=== PATIENT | male | born 1960 | race Caucasian/White ===

== ENCOUNTER 2021-09-13 11:31 | Inpatient (IN) | payer OTHER ==
[~2021-09-13] VITALS: Ht 162.6 cm; Wt 71.4 kg
[~2021-09-13 11:31] MED LIST: CYCL10 PO; HYDR-86 PO; IBUP800 PO; Lotrimin Ultra12 GM TP; NAPR500 PO; Naprosyn500 MG PO; Norco 5-325 Ta1 EACH PO; OXYACE5T PO; PENVK500 PO; TRAM50 PO
--- NOTE | 2021-09-13 12:18 | NUR ---
Pt. coded in X-ray/CT. Attempted to call NOK sister at # on face sheet. NOK# is disconnected. After a brief google search for NOK, attempted a secondary #, received a voicemail recording. Asked for NOK by name, Identified that the pt. is at the hospital and to call this glue plant operator ([phone]) as soon as possible.
[2021-09-13 12:23] LABS: PCO2 Arterial 62.6 mmHg (35-45); PO2 Arterial 148 mmHg (80-100); pH Blood Arterial 7.07 (7.35-7.45)
--- NOTE | 2021-09-13 12:36 | NUR ---
INTUBATED IN ER, S/U ON TRILOGY VENT, CONTINUOUS NEB GIVEN IN LINE AND ETCO2 SET UP PER MD ORDER. AFTER ABG PERFORMED FIO2 DECREASED TO 80% FROM 100 AND RATE INCREASED FROM 16 TO 20
[2021-09-13 12:47] LABS: Source, Urine Clean Catch
[2021-09-13 13:01] LABS: Appearance, Urine Clear (Clear); Bilirubin, Urine Neg (Neg); Blood, Urine 5+ (Neg); Color, Urine Yellow (P-Yellow); Glucose Qualitative, Urine 2+ (Neg); Ketones, Urine Neg (Neg); Leukocyte Esterase, Urine Neg (Neg); Nitrite, Urine Neg (Neg); Protein, Urine 3+ (Neg); Specific Gravity, Urine 1.015 (1.003-1.022); Urobilinogen, Urine NORM (Normal); pH, Urine 6.5 (5.0-8.0)
[2021-09-13 13:04] LABS: BASOPHILS ABSOLUTE AUTO 0.04 K/mm3 (0.00-0.23); BASOPHILS PERCENT AUTO 1 % (0-2); EOSINOPHILS ABSOLUTE AUTO 0.07 K/mm3 (0.00-0.68); EOSINOPHILS PERCENT AUTO 1 % (0-6); Hematocrit 42.9 % (37.0-53.0); Hemoglobin 13.6 g/dL (13.5-17.5); IMMATURE GRAN PERCENT AUTO 3 % (0-1); LYMPHOCYTES ABSOLUTE AUTO 3.44 K/mm3 (0.84-5.20); LYMPHOCYTES PERCENT AUTO 39 % (21-46); MONOCYTES ABSOLUTE AUTO 0.26 K/mm3 (0.16-1.47); MONOCYTES PERCENT AUTO 3 % (4-13); Mean Corpuscular HGB 32.4 pg (26.0-34.0); Mean Corpuscular HGB Conc 31.7 g/dL (31.5-36.5); Mean Corpuscular Volume 102 fL (80-100); NEUTROPHILS ABSOLUTE AUTO 4.77 K/mm3 (1.96-9.15); NEUTROPHILS PERCENT AUTO 54 % (41-73); RDW Coefficient Variation 13.2 % (11.7-14.2); RDW Standard Deviation 49.9 fL (35.1-46.3); White Blood Cell Count 8.88 K/mm3 (4.00-11.30)
[2021-09-13 13:09] LABS: CPK Creatine Kinase 350 U/L (39-308)
[2021-09-13 13:10] LABS: Mean Platelet Volume 8.7 fL (9.1-12.4); Platelet Count 98 K/mm3 (150-400)
[2021-09-13 13:23] LABS: Alanine Aminotransfer (ALT/SGP 118 U/L (12-78); Albumin, Blood 2.4 g/dL (3.4-5.0); Albumin/Globulin Ratio 0.7 (0.8-1.8); Alk Phos 52 U/L (50-136); Anion Gap 16 mmol/L (6-16); Aspartate Aminotrans (AST/SGOT 179 U/L (12-37); Bilirubin, Total 0.3 mg/dL (0.1-1.0); Blood Urea Nitrogen 17 mg/dL (8-24); Bun/Creatinine Ratio 18.3 (12.0-20.0); CO2, Blood 19 mmol/L (21-32); Chloride, Blood 102 mmol/L (98-108); Creatinine, Blood 0.93 mg/dL (0.60-1.20); Globulin, Blood 3.6 g/dL (2.2-4.0); Glomerular Filtration Rate >60 (60-); Glucose, Blood 266 mg/dL (70-99); Sodium, Blood 137 mmol/L (136-145)
[2021-09-13 13:26] LABS: White Blood Cells, Urine 0-2 /hpf (0-5)
[2021-09-13 13:27] LABS: Bacteria Few /hpf; Mucus Light (0-Heavy); Squamous Epithelial Cells Few /hpf (Few)
[2021-09-13 13:31] LABS: Calcium, Blood 13.8 mg/dL (8.5-10.1)
[2021-09-13 13:53] LABS: Creatine Kinase MB Index 3.4 (0.0-4.0)
[2021-09-13 13:55] LABS: Calcium, Ionized (POC) 1.96 mmol/L (1.10-1.46); Chloride (POC) 94 mmol/L (98-108); Creatinine (POC) 0.7 mg/dL (0.8-1.3); Glucose (ISTAT POC) 176 mg/dL (70-99); Hemoglobin (POC) 13.9 g/dL (13.5-17.5); Potassium (POC) 3.3 mmol/L (3.5-5.5); Sodium (POC) 122 mmol/L (135-148); Total CO2 (POC) 19 mmol/L (21-32)
[2021-09-13] MEDS ORDERED: BACLOFEN10 M4 PO (14:18)
[2021-09-13] MEDS ORDERED: MELO7.5 PO (14:19)
--- NOTE | 2021-09-13 15:21 | NUR ---
ATTEMPTING TO CONTACT PT'S NEXT OF KIN (SISTER), NUMBER DISCONNECTED. FOUND OUTGOING PHONE CALLS IN PT'S PHONE. CONTACTED [facility] (NIKI) WHO HAS BEEN WORKING CLOSELY WITH PT. PER NIKI, PT REPORTS THAT HE HAS NO CONTACT WITH FAMILY AND HAS NO FRIENDS. NIKI REPORTS HAVING SAME OUTDATED NUMBER FOR PT'S SISTER. CONSULT FOR PALLIATIVE CARE AND ETHICS PLACED.
--- NOTE | 2021-09-13 15:46 | NUR ---
Pt post cpr in ICU. Called his outpatient providers to find next of kin. Was able to reach his cousin. She is notifying his sisters. pt in cardiac arrest cpr in progress family notified. will update family pt has two sisters and a son he is not in contact with. pt kps score is 10% family advised of grim prognosis.
[2021-09-13 15:55] LABS: Prothrombin Time Results 70.1 Sec (9.7-11.5)
[2021-09-13 15:59] LABS: International Normalized Ratio 7.63
[2021-09-13 16:26] LABS: PCO2 Arterial 45.8 mmHg (35-45); PO2 Arterial 373 mmHg (80-100)
[2021-09-13 16:29] LABS: pH Blood Arterial 7.27 (7.35-7.45)
--- NOTE | 2021-09-13 17:15 | NUR ---
ADMISSION TO ICU/CODE BLUE/SHIFT SUMMARY PT ADMITTED TO ICU POST CARDIAC ARREST WHILE IN OUTPT IMAGING FOR LUNG BIOPSY. PER REVIEW ENGINEER, MULTIPLE VTACH, EPI AND SHOCKS. PT TAKEN TO LEAD MATERIAL HANDLER, ONE STENT PLACED TO MID RCA. PT ARRIVES TO ICU AT 1440. VENT SETTINGS AC/VC 20/450/5/50%. LUNGS COARSE THROUGHOUT. BLOODY SECRETIONS VIA ETT. PT QUICKLY BECAME PALE/DIAPHORETIC/MOTTLED. ETCO2 DECREASED TO 18, HYPOTENSIVE. DR BUTTERFIELD AND DR Javed CALLED. 1L NS, LEVO STARTED. CPR STARTED D/T HYPOTENSION AND PERFUSION. EPI GTT STARTED. PULSES CHECKED, PEA, CODE CONTINUED. LEVO AND EPI GTT MAXED, 1 AMP BICARB GIVEN. ROSC. DR BUTTERFIELD PLACED CENTRAL AND ART LINE TO LEFT GROIN. DRESSING INTACT BUT SITE OOZING. TR BAND TO RIGHT RADIAL, 2 ML REMOVED s DIFFICULTY, OOZING WHEN ADDITIONAL AIR REMOVED, REPLACED 2 ML, WILL MONITOR CLOSELY. SEDATION PLACED ON STANDBY DURING CODE, p ART LINE PLACED, PT MOVED HEAD TO VOICE, OPENS EYES SPONT, DOES NOT FOLLOW COMMANDS. MOVES ALL EXT. COUGH/GAG/SWALLOW REFLEX. RESTARTED PROPOFOL GTT FOR SEDATION, MEDICATED c FENTANYL FOR PAIN. OGT TO LIS, RED EMESIS OUT. PT REMAINS PALE BUT MOTTLING IMPROVED. NOT DIAPHORETIC AT THIS TIME. HYPOTHERMIC, NO NEED TO COOL PER DR BUTTERFIELD, PASSIVE WARMING IN PLACE. LEE PATENT, DRAINING CLEAR YELLOW URINE TO GRAVITY. PALLIATIVE CARE ATTEMPTING TO CONTACT FAMILY. WILL CONTINUE TO MONITOR UNTIL REPORT TO ONCOMING NURSE.
[2021-09-13 17:18] LABS: BASOPHILS ABSOLUTE AUTO 0.04 K/mm3 (0.00-0.23); BASOPHILS PERCENT AUTO 0 % (0-2); EOSINOPHILS ABSOLUTE AUTO 0.03 K/mm3 (0.00-0.68); EOSINOPHILS PERCENT AUTO 0 % (0-6); Hematocrit 37.5 % (37.0-53.0); Hemoglobin 11.9 g/dL (13.5-17.5); IMMATURE GRAN ABSOLUTE AUTO 0.35 K/mm3 (0.00-0.10); IMMATURE GRAN PERCENT AUTO 2 % (0-1); LYMPHOCYTES ABSOLUTE AUTO 1.35 K/mm3 (0.84-5.20); LYMPHOCYTES PERCENT AUTO 7 % (21-46); MONOCYTES PERCENT AUTO 9 % (4-13); Mean Corpuscular HGB 32.4 pg (26.0-34.0); Mean Corpuscular HGB Conc 31.7 g/dL (31.5-36.5); Mean Corpuscular Volume 102 fL (80-100); NEUTROPHILS PERCENT AUTO 82 % (41-73); Platelet Count 364 K/mm3 (150-400); RDW Coefficient Variation 13.2 % (11.7-14.2); Red Blood Cell Count 3.67 M/mm3 (4.30-5.90); White Blood Cell Count 18.47 K/mm3 (4.00-11.30)
[2021-09-13 18:05] LABS: Albumin, Blood 2.2 g/dL (3.4-5.0); Anion Gap 14 mmol/L (6-16); Blood Urea Nitrogen 21 mg/dL (8-24); Bun/Creatinine Ratio 15.1 (12.0-20.0); CO2, Blood 25 mmol/L (21-32); Calcium, Blood 10.1 mg/dL (8.5-10.1); Chloride, Blood 99 mmol/L (98-108); Creatinine, Blood 1.39 mg/dL (0.60-1.20); Glomerular Filtration Rate 52 (60-); Glucose, Blood 204 mg/dL (70-99); Phosphorus, Blood 9.2 mg/dL (2.5-4.9); Potassium, Blood 4.4 mmol/L (3.5-5.5); Sodium, Blood 138 mmol/L (136-145)
--- NOTE | 2021-09-13 18:09 | NUR ---
Family arrived review of pt with sister. Son will be in later. Sister Yuli is willing to make decisions of son kiana. She hopes he can and she can support him. 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 She wants to know his prognosis with the cancer. Her thought is if he will be in great declline or dying of cancer he would not want this treatment. Family states he has been isolating and probably drinking more alcohol. got contact numbers for family and updated political reporter. plan watch and wait if he continues to wake up he may be able to participate in decisions.
--- NOTE | 2021-09-13 18:39 | NUR ---
Spiritual Care Pt. is intubated and non responsive. Three family members present including NOK. Family welcomed my visit. Facilitated life review. Family is reaching out to pts. son who is coming in from [facility]. Prayed for Pt. and the family. Family displayed evidence of catharsis, and verbalized gratitude for the spiritual care visit.
[2021-09-13 18:53] LABS: Influenza A, PCR NEGATIVE (NEGATIVE); Influenza B, PCR NEGATIVE (NEGATIVE); Resp Syncytial Virus, PCR NEGATIVE (NEGATIVE); SARS-Cov-2 (COVID-19) PCR, MMC NEGATIVE (NEGATIVE)
--- NOTE | 2021-09-13 20:00 | NUR ---
ASSUMED CARE: Pt CURRENTLY SEDATED ON VENT, SETTINGS 20/450/5/100%. MULTIPLE FAMILY IS AT THE BEDSIDE. SON WHO WILL BE MAKING MEDICAL DECISIONS WILL BE HERE SHORTLY. SATS 100%. LS COARSE T/O. SUCTION COMPLETED, SCANT AMOUNT OF BLOODY DRAINAGE NOTED. RESPONDS TO PAIN, OPENS EYES SPONTANOUSLY. ZOLL PATCHES STILL IN PLACE FROM EARLIER CPR. SOME BRUISING NOTED. VS HOLDING, SINUS TACH ON MONITOR. ARTLINE HOOKED UP TO LEFT FEMORAL. CURRENT GTTS: LEVO-10; EPI-2; PROPOFOL-25; NS AT 125ML/HR. ALL OTHER LINES FLUSHED. LEE IN PLACE AND DRAINING. DRESSING TO CENTRAL LINE INTACT, SCANT AMOUNT OF DRAINAGE UNDER DRESSING. DISCUSSED CARE WITH FAMILY. SEE ASSESSMENT FOR FURTHER DETAILS.
--- NOTE | 2021-09-13 21:05 | NUR ---
UPDATED DR. BUTTERFIELD REGARDING FAMILY'S DECISION FOR DNR, THEY DO NOT WANT ANY MORE CPR TO BE PERFORMED IF HIS HEART STOPS. NEW ORDERS OBTAINED FOR CHANGE IN CODE STATUS, LABS, AND MEDS.
[2021-09-14 06:00] LABS: PCO2 Arterial 31.4 mmHg (35-45); PO2 Arterial 125 mmHg (80-100); pH Blood Arterial 7.42 (7.35-7.45)
--- NOTE | 2021-09-14 06:06 | NUR ---
SHIFT SUMMARY: Pt SEDATED ON VENT. SETTINGS: 16/450/5/30%. TOLERATING WELL. ETCO2 HAS REMAINED BETWEEN 21-22. SATS 100%. SCANT AMOUNT OF BLOODY SECREATIONS W/SUCTIONING. LS COARSE T/O. NO GAG, SWALLOW, OR COUGH NOTED. DOES OPEN EYES SPONTANOUSLY, WILL CONVENTION WORKER ON REQUEST ON THE RIGHT HAND ONLY. PUPILS VERY SLUGGISH, NO MOVEMENT. SINUS TACH ON MONITOR RATE 105-107. ART LINE PRESSURES HOLDING WNL, LEVOPHED ON HOLD. BT HYPOACTIVE, SM BM NOTED. LEE PATENT ENRIQUE 700 OUTPUT. FEBRILE 100.4. GRIMACING WITH MOVEMENT-FENTANYL GIVEN 3 TIMES. ART/CENTRAL LINE PATENT. GTTS: PROPOFOL-25; EPI-1; NS @ 125. DR. BUTTERFIELD CALLED FOR UPDATE ON FAMILY REQUEST FOR DNR, NEW ORDERS RECEIVED, PLEASE SEE CHART. OG TO LIS HAD 200CC OF BLOODY DRAINAGE. FAMILY HAS BEEN AT BEDSIDE ALL NIGHT. LABS PENDING. WILL CONTINUE TO MONITOR TILL REPORT IS GIVEN.
[2021-09-14 06:50] LABS: Alanine Aminotransfer (ALT/SGP 852 U/L (12-78); Albumin, Blood 2.4 g/dL (3.4-5.0); Albumin/Globulin Ratio 0.8 (0.8-1.8); Alk Phos 40 U/L (50-136); Anion Gap 10 mmol/L (6-16); Aspartate Aminotrans (AST/SGOT 3555 U/L (12-37); Bilirubin, Total 0.7 mg/dL (0.1-1.0); Blood Urea Nitrogen 26 mg/dL (8-24); Bun/Creatinine Ratio 23.4 (12.0-20.0); CO2, Blood 20 mmol/L (21-32); Calcium, Blood 8.1 mg/dL (8.5-10.1); Chloride, Blood 106 mmol/L (98-108); Creatinine, Blood 1.11 mg/dL (0.60-1.20); Glomerular Filtration Rate >60 (60-); Glucose, Blood 185 mg/dL (70-99); Potassium, Blood 4.4 mmol/L (3.5-5.5); Sodium, Blood 136 mmol/L (136-145); Total Protein, Blood 5.4 g/dL (6.4-8.2)
[2021-09-14 07:00] LABS: BASOPHILS ABSOLUTE AUTO 0.02 K/mm3 (0.00-0.23); BASOPHILS PERCENT AUTO 0 % (0-2); EOSINOPHILS PERCENT AUTO 0 % (0-6); Hematocrit 31.5 % (37.0-53.0); Hemoglobin 10.7 g/dL (13.5-17.5); IMMATURE GRAN ABSOLUTE AUTO 0.07 K/mm3 (0.00-0.10); IMMATURE GRAN PERCENT AUTO 1 % (0-1); International Normalized Ratio 1.48; LYMPHOCYTES ABSOLUTE AUTO 1.06 K/mm3 (0.84-5.20); LYMPHOCYTES PERCENT AUTO 8 % (21-46); MONOCYTES ABSOLUTE AUTO 0.82 K/mm3 (0.16-1.47); MONOCYTES PERCENT AUTO 6 % (4-13); Mean Corpuscular HGB 32.7 pg (26.0-34.0); Mean Corpuscular Volume 96 fL (80-100); Mean Platelet Volume 8.3 fL (9.1-12.4); NEUTROPHILS ABSOLUTE AUTO 11.03 K/mm3 (1.96-9.15); NEUTROPHILS PERCENT AUTO 85 % (41-73); Platelet Count 271 K/mm3 (150-400); Prothrombin Time Results 15.1 Sec (9.7-11.5); RDW Coefficient Variation 13.1 % (11.7-14.2); RDW Standard Deviation 45.3 fL (35.1-46.3); Red Blood Cell Count 3.27 M/mm3 (4.30-5.90)
--- NOTE | 2021-09-14 08:00 | NUR ---
ASSUMED CARE REPORT FROM MARTA/OCTAVIO RAJPUT. PT INTUBATED AND SEDATED. VENT SETTINGS AC/VC 20/450/5/30%. LUNGS CLEAR THROUGHOUT. SMALL RED SECRETIONS THROUGH ETT. PROPOFOL AND FENTANYL PRN FOR SEDATION AND PAIN. COUGH/GAG/SWALLOW REFLEX PRESENT. GRIMACES c CARE. SQUEEZES HAND ON RIGHT SIDE. DOES NOT FOLLOW ANY OTHER COMMANDS. PUPILS 2 MM, SLUGGISH. ST ON MONITOR, RATE 100'S. BP STABLE. EPI GTT PLACED ON STANDBY. ART LINE AND CENTRAL TO LEFT GROIN, DRESSING C/D/I. ART LINE ZERO'D. LEE PATENT, DRAINING CLEAR YELLOW URINE TO GRAVITY. OGT TO LIS. WILL CONTINUE TO MONITOR.
--- NOTE | 2021-09-14 16:45 | NUR ---
ASSUMED CARE REPORT FROM RAUL RAJPUT. PT. SEDATED AND INTUBATED AT THIS TIME. FACIAL GRIMACE AND PULLING AGAINST RESTRAINTS WITH REPOSITIONING. PT. RR INCREASES WITH REPOSITIONING WELL. PROPOFOL TITRATED UP TO 40MCG/KG/MIN AT THIS TIME AND MED WITH FENTANYL FOR PAIN. LS COARSE. MINIMAL RESIDUALS NOTED, TUBE FEED INFUSING AT 25ML/HR. TYLENOL GIVEN PT FOR TEMP 100.3. FAN AND ICE PACKS REMAIN IN PLACE. PT. HAS TEMP LEE DRAINING TO GRAVITY. VSS AT THIS TIME, PT REMAINS OFF PRESSORS AT THIS TIME. ART LINE IN PLACE.
--- NOTE | 2021-09-14 20:50 | NUR ---
ASSUMED CARE: UNRESPONSIVE EXCEPT TO PAINFUL STIMULI. SEDATED WITH PROPOFOL AT 40. INTUBATED/VENT SETTINGS 20/450/5/30%. SATS 94%. SUCTIONED WITH BLOOD TINGE SECREATIONS, AND CREAMY THICK HYDE ORALLY. IRREGULAR BREATHING PATTERN POSSIBLY R/T FX STERNUM/RIBS. GRIMACING ON TOUCH OR SLIGHT MOVEMENT. MEDICATED WITH FENTANYL. LS WITH A RUB VS COARSE. SINUS TACH ON MONITOR IN THE 110'S. CATH WITH DARK YELLOW URINE, PATENT. SMALL BM NOTED, COMPLETE BEDBATH COMPLETED. COOL OUTER TEMP BUT CORE READING 99.4. NS INFUSING AT 125ML/HR. WILL CONTINUE TO MONITOR AND ASSESS.
[2021-09-15 04:17] LABS: BASOPHILS ABSOLUTE AUTO 0.02 K/mm3 (0.00-0.23); BASOPHILS PERCENT AUTO 0 % (0-2); Hematocrit 25.2 % (37.0-53.0); Hemoglobin 8.6 g/dL (13.5-17.5); LYMPHOCYTES ABSOLUTE AUTO 1.04 K/mm3 (0.84-5.20); LYMPHOCYTES PERCENT AUTO 10 % (21-46); MONOCYTES ABSOLUTE AUTO 1.05 K/mm3 (0.16-1.47); MONOCYTES PERCENT AUTO 10 % (4-13); Mean Corpuscular HGB 32.7 pg (26.0-34.0); Mean Corpuscular HGB Conc 34.1 g/dL (31.5-36.5); Mean Corpuscular Volume 96 fL (80-100); Mean Platelet Volume 9.1 fL (9.1-12.4); Platelet Count 221 K/mm3 (150-400); RDW Coefficient Variation 13.2 % (11.7-14.2); Red Blood Cell Count 2.63 M/mm3 (4.30-5.90); White Blood Cell Count 10.99 K/mm3 (4.00-11.30)
[2021-09-15 04:26] LABS: EOSINOPHILS ABSOLUTE AUTO 0.04 K/mm3 (0.00-0.68); EOSINOPHILS PERCENT AUTO 0 % (0-6); IMMATURE GRAN ABSOLUTE AUTO 0.06 K/mm3 (0.00-0.10); IMMATURE GRAN PERCENT AUTO 1 % (0-1); NEUTROPHILS ABSOLUTE AUTO 8.78 K/mm3 (1.96-9.15); NEUTROPHILS PERCENT AUTO 80 % (41-73)
[2021-09-15 04:33] LABS: Alanine Aminotransfer (ALT/SGP 598 U/L (12-78); Albumin/Globulin Ratio 0.6 (0.8-1.8); Alk Phos 36 U/L (50-136); Anion Gap 7 mmol/L (6-16); Aspartate Aminotrans (AST/SGOT 695 U/L (12-37); Bilirubin, Direct 0.2 mg/dL (0.0-0.3); Bilirubin, Indirect 0.5 mg/dL (0.1-0.7); Bilirubin, Total 0.7 mg/dL (0.1-1.0); Blood Urea Nitrogen 28 mg/dL (8-24); CO2, Blood 23 mmol/L (21-32); Calcium, Blood 7.4 mg/dL (8.5-10.1); Chloride, Blood 109 mmol/L (98-108); Creatinine, Blood 0.97 mg/dL (0.60-1.20); Globulin, Blood 3.1 g/dL (2.2-4.0); Glomerular Filtration Rate >60 (60-); Glucose, Blood 121 mg/dL (70-99); Phosphorus, Blood 2.5 mg/dL (2.5-4.9); Potassium, Blood 3.9 mmol/L (3.5-5.5); Sodium, Blood 139 mmol/L (136-145); Total Protein, Blood 5.1 g/dL (6.4-8.2)
--- NOTE | 2021-09-15 06:04 | NUR ---
SHIFT SUMMARY: NO ACUTE CHANGES THIS SHIFT. Pt CONTINUES ON SEDATION VIA PROPOFOL RATE 40MCQ/HR. RESPONDS TO PAIN ONLY. VENT SETTINGS REMAINS 20/450/5/30%. SECREATIONS ARE MODERATE HYDE CREAMY COLOR. ETCO2 20-21. LS STARTED WITH A RUB BUT BECAME CLEAR WITH INCREASE IN SUCTIONING. SINUS TACH WITH SOME PREMATURE BEATS RATE 110'S. SATS AVERATE 95-97%. INCREASE IN FENTANYL USE FOR PAIN CONTROL AND EASE OF BREATHING. LEE OUTPUT 450 DARK. SWELLING IN BILATERAL UPPER ARMS. SMALL BM. WILL CONTINUE TO MONITOR TILL REPORT IS GIVEN.
--- NOTE | 2021-09-15 18:12 | NUR ---
SUMMARY PT INTUBATED AND SEDATED WITH PROPOFOL. PT WILL RAISE EYEBROWS WHEN SPOKEN TO. WILL LIFT R ARM TOWARDS ETT AT TIMES. NOT FOLLOWING COMMANDS. WILL TRY TO MOUTH WORDS AT TIMES. PT GETS TACHYPNEIC AND BROW FURROWS, FENTANYL USED FOR PAIN. PT HAS FLAIL CHEST FROM CPR AND SOME LIGHT BLUE/GREEN BRUISING WITH FRACTURED RIBS. TOLERATING TF WITH MINIMAL RESIDUAL. HAVING LOOSE STOOL. DID NOT ATTEMPT SBT TODAY DUE TO INCREASED RESP RATE, INCREASED SPUTUM PRODUCTION, AND PT'S OVERALL DISCOMFORT WITH FRACTURED RIBS.
--- NOTE | 2021-09-15 20:21 | NUR ---
ASSUMED CARE. LIGHTLY SEDATED, ATTEMPTS TO OPEN EYES TO NAME. CUSTOMER RELATIONS ASSISTANT IS STRONG ON THE RIGHT, DOES NOT CUSTOMER RELATIONS ASSISTANT ON THE LEFT, DOES MOVE LEFT ARM WHEN OUT OF RESTRAINT. FLEXION WITHDRAWL FEET. GOOD GAG, SWALLOW, AND COUGH WHEN SUCTIONING. PUPILS MORE REACTIVE THEN PREVIOUS NIGHT. VENT SETTINGS 20/450/5/30% SATS 96-99%. LS VERY COURSE, CLEAR TO HYDE SECREATIONS, INCREASE SILIVA PRODUCTION. SINUS TACH/ARRYTHMIA ON MONITOR RATE OF 102. ABP 120'S. PROPOFOL GTT AT 50MCQ/HR. NS AND ANTIBOTIC INFUSING. ALL LINES ARE PATENT AND WORKING, CATH PATENT. WILL CONTINUE TO MONITOR, TX, AND PROVIDE CARE.
--- NOTE | 2021-09-16 00:58 | NUR ---
TRANSFER OF CARE TO CHARLY RAJPUT. REPORT GIVEN. Pt RESTING COMFORTABLY. NO CHANGES TO VENT SETTINGS, PROPOFOL CONTINUES AT 50MCQ. TF AT GOAL OF 35ML/HR. SEE ASSESSMENTS FOR FURTHER DETAILS.
--- NOTE | 2021-09-16 01:09 | NUR ---
ASSUMED CARE OF PATIENT, PT TRIES TO OPEN HIS EYES AT THE SOUND OF HIS NAME. SHARIF, ETT 7.5 23CM @ GUMS, AC 20/450/5/30%, SATS 97%, ABP 110'S/50'S, MAP>65, RESP RATE 24, CHEST VISIBLY UNEQUAL WITH BRUISING NOTED. PT GRIMACES WITH LEFT ARM MOVEMENT, TF PIVOT 1.5 @ 35ML/HR W/ BT+, LEE TO GRAVITY DRAINAGE WITH CLEAR YELLOW RETURN IN TUBING AND BAG. CENTRAL LINE IN LEFT GROIN C/D/I. ART LINE ZEROED. HANDS EDEMATOUS, FEET/ANKLES W/ GOOD COLOR/WARMTH.
[2021-09-16 04:08] LABS: Hemoglobin 7.4 g/dL (13.5-17.5); Mean Corpuscular HGB Conc 33.6 g/dL (31.5-36.5); Mean Corpuscular Volume 98 fL (80-100); Mean Platelet Volume 9.3 fL (9.1-12.4); NRBC ABSOLUTE 0.05 K/mm3 (0.00-0.02); NRBC Auto 0.5 /100 WBC (0.0-0.2); Platelet Count 174 K/mm3 (150-400); RDW Coefficient Variation 13.6 % (11.7-14.2); RDW Standard Deviation 48.7 fL (35.1-46.3); Red Blood Cell Count 2.24 M/mm3 (4.30-5.90); White Blood Cell Count 9.98 K/mm3 (4.00-11.30)
[2021-09-16 04:24] LABS: Albumin, Blood 1.8 g/dL (3.4-5.0); Anion Gap 5 mmol/L (6-16); Blood Urea Nitrogen 22 mg/dL (8-24); Bun/Creatinine Ratio 25.6 (12.0-20.0); CO2, Blood 24 mmol/L (21-32); Calcium, Blood 7.4 mg/dL (8.5-10.1); Chloride, Blood 111 mmol/L (98-108); Creatinine, Blood 0.86 mg/dL (0.60-1.20); Glomerular Filtration Rate >60 (60-); Glucose, Blood 135 mg/dL (70-99); Magnesium, Blood 2.2 mg/dL (1.6-2.4); Phosphorus, Blood 2.3 mg/dL (2.5-4.9); Potassium, Blood 3.6 mmol/L (3.5-5.5); Sodium, Blood 140 mmol/L (136-145)
--- NOTE | 2021-09-16 05:50 | NUR ---
PT CONTINUES ON VENTILATOR, AC 20/450/5/30%, TUBE FEEDING @ 35ML/HR, PROPOFOL @ 50MCG/KG, NS @ 75ML/HR. LEE TO GRAVITY DRAINAGE. LUNGS CONT. W/ COARSENESS THROUGHOUT, BOWEL TONES +, ALERT TO VOICE/TOUCH. UNABLE TO WIGGLE TOES ON COMMAND. NO OTHER CHANGES NOTED SINCE MIDNIGHT. WILL CONTINUE TO MONITOR AND TREAT NECESSARY.
--- NOTE | 2021-09-16 06:10 | NUR ---
WHEN PATIENT WAS BEING TURNED AND REPOSITIONED, HE WAS ABLE TO MOVE THE TOES ON THE RIGHT FOOT TO COMMAND, HE ALSO MOVED BOTH ARMS ON HIS OWN.
[2021-09-16 06:23] LABS: BAND PERCENT MAN 8 % (0-8); BASOPHILS PERCENT MAN 0 % (0-2); EOSINOPHILS ABSOLUTE MAN 0.39 K/mm3 (0.00-0.68); EOSINOPHILS PERCENT MAN 4 % (0-6); LYMPHOCYTES ABSOLUTE MAN 0.99 K/mm3 (0.84-5.20); LYMPHOCYTES PERCENT MAN 10 % (21-46); MONOCYTES ABSOLUTE MAN 0.59 K/mm3 (0.16-1.47); MONOCYTES PERCENT MAN 6 % (4-13); NEUTROPHILS ABSOLUTE MAN 7.98 K/mm3 (1.96-9.15); SEG NEUTROPHILS PERCENT MAN 72 % (41-73); TOTAL CELLS COUNTED 100
--- NOTE | 2021-09-16 07:25 | NUR ---
ASSUMPTION OF CARE RECEIVED REPORT FROM CHARLY RAJPUT AT 0700, ASSUMED CARE OF PATIENT. PATIENT INTUBATED WITH VENT SETTINGS 20/450/5/30% WITH 02 SATS ABOVE 95%. PATIENT SPONTANEOUSLY OPENS EYES, FOLLOWS COMMANDS. GRIMACES TO PAIN. PROPOFOL INFUSING AT 50MCG/KG. TF AT GOAL OF 35ML/HR INFUSING VIA OG. CENTRAL LINE AND ART LINE TO LEFT GROIN C/D/I. LEE PATENT AND DRAINING. WILL REVIEW ORDERS AND TREAT PRESCRIBED.
[2021-09-16 09:52] LABS: Hemoglobin 7.2 g/dL (13.5-17.5)
--- NOTE | 2021-09-16 15:05 | NUR ---
Spiritual Care visit. Pt. is resting and unresponsive. Spoke words of pastoral counel and prayer over pt. Will monitor when family visits.
--- NOTE | 2021-09-16 15:39 | NUR ---
Review of family and pt with intesivist. Goal is extubation. pt kps score is 30%. Family presents that he historically did not persue care. He is now post cardiac arrest two separte events of cpr. Suggest hospice care.
[2021-09-16 16:33] LABS: Hematocrit 23.5 % (37.0-53.0); Hemoglobin 7.3 g/dL (13.5-17.5)
--- NOTE | 2021-09-16 18:29 | NUR ---
SHIFT SUMMARY PATIENT VENTED, WAKING UP AND FOLLOWING COMMANDS AT START OF SHIFT. VENT CHANGED FROM AC TO SPONTANEOUS AROUND [address] FOUNTAIN, PLACED BACK ON AC 20/450/5/30%, SATS ABOVE 95%. PATIENT ON PROPOFOL AND ADDED PRECEDEX TO DECREASE PROPOFOL DOSE. VITALS STABLE NOT REQUIRING ART LINE. PERIPHERAL LINES PLACED AND SUCCESSFULY D/C'D BOTH CENTRAL LINE AND ART-LINE FROM LEFT GROIN. MEDICATED FOR PAIN WITH FENTANYL CHARTED WITH GOOD RESPONSE. PROPOFOL TITRATED FOR B/P AND SEDATION. FEBRILE WITH TEMP HIGH OF 100.5, FAN PLACED TO BEDSIDE. FAMILY UPDATED. WILL MONITOR AND REPORT TO ONCOMING RN.
--- NOTE | 2021-09-16 19:29 | NUR ---
Assumed care. Report received from karen RAJPUT. Pt in bed, sedated and ventilated via ETT. Vent settings: AC/VC 220/450/5/30%. OG tube in place, TF at goal rate 35 ml/hr. PT has IV access in R/forearm and L/forearm. IV pump settings: Propofol 20 mcg/kg/min, precedex 1.2 mcg/kg/hr, NS 75 ml/hr. SWB restraints in place. Medina catheter in place. VS stable, no acute needs noted at this time. Will continue to monitor.
[2021-09-17 04:07] LABS: Hematocrit 22.7 % (37.0-53.0); Hemoglobin 7.3 g/dL (13.5-17.5); Mean Corpuscular HGB 32.4 pg (26.0-34.0); Mean Corpuscular HGB Conc 32.2 g/dL (31.5-36.5); Mean Corpuscular Volume 101 fL (80-100); Mean Platelet Volume 9.8 fL (9.1-12.4); NRBC ABSOLUTE 0.35 K/mm3 (0.00-0.02); NRBC Auto 2.9 /100 WBC (0.0-0.2); Platelet Count 157 K/mm3 (150-400); RDW Coefficient Variation 14.2 % (11.7-14.2); RDW Standard Deviation 51.8 fL (35.1-46.3); Red Blood Cell Count 2.25 M/mm3 (4.30-5.90); White Blood Cell Count 11.98 K/mm3 (4.00-11.30)
[2021-09-17 04:25] LABS: Albumin, Blood 1.7 g/dL (3.4-5.0); Anion Gap 4 mmol/L (6-16); Blood Urea Nitrogen 27 mg/dL (8-24); Bun/Creatinine Ratio 27.6 (12.0-20.0); CO2, Blood 23 mmol/L (21-32); Calcium, Blood 7.4 mg/dL (8.5-10.1); Chloride, Blood 115 mmol/L (98-108); Creatinine, Blood 0.98 mg/dL (0.60-1.20); Glomerular Filtration Rate >60 (60-); Glucose, Blood 141 mg/dL (70-99); Magnesium, Blood 2.7 mg/dL (1.6-2.4); Potassium, Blood 3.9 mmol/L (3.5-5.5); Sodium, Blood 142 mmol/L (136-145)
[2021-09-17 04:26] LABS: BAND PERCENT MAN 20 % (0-8); BASOPHILS PERCENT MAN 0 % (0-2); EOSINOPHILS ABSOLUTE MAN 0.11 K/mm3 (0.00-0.68); EOSINOPHILS PERCENT MAN 1 % (0-6); LYMPHOCYTES ABSOLUTE MAN 1.19 K/mm3 (0.84-5.20); LYMPHOCYTES PERCENT MAN 10 % (21-46); MONOCYTES ABSOLUTE MAN 1.19 K/mm3 (0.16-1.47); MONOCYTES PERCENT MAN 10 % (4-13); MYELOCYTE ABSOLUTE MAN 0.11 K/mm3 (0.00-0.00); MYELOCYTE PERCENT MAN 1 % (0-0); NEUTROPHILS ABSOLUTE MAN 9.34 K/mm3 (1.96-9.15); SEG NEUTROPHILS PERCENT MAN 58 % (41-73); TOTAL CELLS COUNTED 100
--- NOTE | 2021-09-17 06:50 | NUR ---
Shift summary. Pt rested in bed throughout shift, vent settings remained unchanged. ETT, OG tube in place, TF at goal rate. Propofol titrated off during shift. Precedex running at 1.0 mcg/kg/hr. Pt medicated with PRN fentanyl and dilaudid for pain. SWB restraints in place. Medina in place, 450 out this shift. Pt alert and responding to verbal stimuli, following commands. See shift assessment for further details. Will continue to monitor and report off to dayshift RN.
--- NOTE | 2021-09-17 07:10 | NUR ---
ASSUMPTION OF CARE RECEIVED REPORT FROM JUSTINA RAJPUT, ASSUMED CARE OF PATIENT. PATIENT INTUBATED VENT SETTINGS 20/450/5/30% WITH 02 SATS ABOVE 95%. PATIENT AWAKE, FOLLOWING COMMANDS. PRECEDEX AT 1.2MCG/KG FOR COMFORT. LEE PATENT AND DRAINING. WILL REVIEW ORDERS AND TREAT PRESCRIBED.
--- NOTE | 2021-09-17 11:29 | NUR ---
PATIENT BECOMING AGITATED AND ANXIOUS. SPOKE TO DR. FOUNTAIN, AWAITING FAMILY TO ARRIVE BEFORE EXTUBATION. MEDICATED FOR PAIN AND RESTARTED PROPOFOL. PATIENT CURRENTLY SEDATED. ONCE FAMILY ARRIVES, WILL AWAKE PATIENT AND REASSESS FOR EXTUBATION.
--- NOTE | 2021-09-17 13:06 | NUR ---
EXTUBATION FAMILY ARRIVED TO UNIT AT 1200. TITRATED PROPOFOL OFF, PATIENT AWOKE AROUND 1230. CALM AND COOPERATIVE, REMAINED ON SPONTANEOUS VIA VENTILATOR. DR. FOUNTAIN TO ROOM AND DISCUSSED PLAN WITH FAMILY. PATIENT EXTUBATED AT 1259 BY RT. A/O AT THIS TIME. PRECEDEX CONTINUES AT 1MCG/KG. WILL TITRATE. FAMILY TO BEDSIDE.
--- NOTE | 2021-09-17 18:13 | NUR ---
SHIFT SUMMARY PATIENT A/O FROM START OF SHIFT. SPONTANEOUS VENT SETTINGS INITIATED. FAMILY ARRIVED AND PATIENT EXTUBATED PREVIOUSLY CHARTED. PATIENT REMAINED A/O AFTER EXTUBATION. PLACED ON 2L 02 VIA NC AND INCREASED TO 5L WHILE ASLEEP. PROPOFOL TURNED OFF AND PRECEDEX TITRATED OFF. MEDICATED WITH FENTANYL AND DILAUDID FOR PAIN. STRONG BUT PAINFUL PRODUCTIVE COUGH. PICC LINE PLACED IN RUE. LEE REMAINED PATENT AND DRAINING CLEAR, ENRIQUE URINE. INCONTINENT OF BOWEL MOVEMENTS CHARTED. WILL CONTINUE TO MONITOR AND REPORT TO ONCOMING RN.
--- NOTE | 2021-09-17 19:59 | NUR ---
ASSUMED CARE. REPORT RECEIVED FROM CATE RAJPUT. PT RESTING IN BED, ON 02 VIA NC AT 4 L/MIN. PICC IN IDA, WNL. NS AT 75 ML/HR RUNNING. LEE CATHETER IN PLACE. VS STABLE. PT ALERT AND ORIENTED, CALL LIGHT WITHIN REACH. WILL CONTINUE TO MONITOR.
[2021-09-18 03:47] LABS: BASOPHILS ABSOLUTE AUTO 0.05 K/mm3 (0.00-0.23); BASOPHILS PERCENT AUTO 0 % (0-2); EOSINOPHILS ABSOLUTE AUTO 0.22 K/mm3 (0.00-0.68); EOSINOPHILS PERCENT AUTO 1 % (0-6); Hematocrit 22.7 % (37.0-53.0); Hemoglobin 7.3 g/dL (13.5-17.5); IMMATURE GRAN ABSOLUTE AUTO 0.64 K/mm3 (0.00-0.10); IMMATURE GRAN PERCENT AUTO 4 % (0-1); LYMPHOCYTES ABSOLUTE AUTO 1.17 K/mm3 (0.84-5.20); LYMPHOCYTES PERCENT AUTO 7 % (21-46); MONOCYTES ABSOLUTE AUTO 1.81 K/mm3 (0.16-1.47); MONOCYTES PERCENT AUTO 11 % (4-13); Mean Corpuscular HGB 32.4 pg (26.0-34.0); Mean Corpuscular HGB Conc 32.2 g/dL (31.5-36.5); Mean Corpuscular Volume 101 fL (80-100); Mean Platelet Volume 9.6 fL (9.1-12.4); NEUTROPHILS ABSOLUTE AUTO 12.52 K/mm3 (1.96-9.15); NEUTROPHILS PERCENT AUTO 76 % (41-73); NRBC ABSOLUTE 0.23 K/mm3 (0.00-0.02); NRBC Auto 1.4 /100 WBC (0.0-0.2); Platelet Count 211 K/mm3 (150-400); RDW Coefficient Variation 14.2 % (11.7-14.2); RDW Standard Deviation 51.5 fL (35.1-46.3); Red Blood Cell Count 2.25 M/mm3 (4.30-5.90); White Blood Cell Count 16.41 K/mm3 (4.00-11.30)
[2021-09-18 04:01] LABS: Anion Gap 6 mmol/L (6-16); Blood Urea Nitrogen 24 mg/dL (8-24); Bun/Creatinine Ratio 27.3 (12.0-20.0); CO2, Blood 23 mmol/L (21-32); Calcium, Blood 7.8 mg/dL (8.5-10.1); Chloride, Blood 116 mmol/L (98-108); Creatinine, Blood 0.88 mg/dL (0.60-1.20); Glomerular Filtration Rate >60 (60-); Glucose, Blood 94 mg/dL (70-99); Potassium, Blood 3.3 mmol/L (3.5-5.5); Sodium, Blood 145 mmol/L (136-145)
--- NOTE | 2021-09-18 06:22 | NUR ---
SHIFT SUMMARY. PT RESTED IN BED THROUGHOUT SHIFT. NO ACUTE CHANGES THIS SHIFT. ON 02 VIA NC, 4L/MIN. PICC IN IDA, WNL. NS RUNNING AT 75 MLS/HR, POTASSIUM RUNNING AT 50 MLS/HR. LEE CATHETER IN PLACE, 650 MLS OUT THIS SHIFT. VS STABLE, SEE SHIFT ASSESSMENT FOR FURTHER DETAILS. WILL CONTINUE TO MONITOR.
--- NOTE | 2021-09-18 07:04 | NUR ---
ASSUMPTION OF CARE RECEIVED REPORT FROM HETAL RAJPUT. ASSUMED CARE OF PATIENT. PATIENT SITTING UP IN BED, A/O. SIPPING WATER WITH NO DIFFICULTIES. VITALS STABLE. 2L [address] NC [address] PLACE WITH SATS 100%. WILL REVIEW ORDERS AND TREAT PRESCRIBED.
[2021-09-18 13:53] LABS: Percent Saturation 12.5 % (20.0-50.0)
--- NOTE | 2021-09-18 17:01 | NUR ---
TRANSFER PATIENT TRANSFERRED TO PCU. REPORT GIVEN TO SHANICE RAJPUT.
--- NOTE | 2021-09-18 17:51 | NUR ---
END OF SHIFT SUMMARY: PATIENT WAS TRANSFERRED AROUND 5. PATIENT HAS A SLIDER UNDERNEATH HIM, THE TRANSFER REALLY AGGREVATED HIS PAIN LEVEL. LEE IN PLACE DRAINING TO GRAVITY. PATIENT HAS BEEN ALERT AND ORIENTED NOT TO DATE BUT ANSWERS ALL QUESTIONS APPROPRIATELY AND IS POLITE. SOME CURSING WITH POSITIONING AND PAIN, BUT NOT DIRECTED AT STAFF. GENERAL PAIN WHICH WAS DOING BETTER UNTIL TRANSFER, RT GAVE A BREATHING TREATMENT, IMPROVED COUGH, STILL LARGE PAIN WITH COUGHING, THICK SPUTUM REPORTED FROM DROP HAMMER MECHANIC. PATIENT SWALLOW IS IMPROVING STILL WOULD RECOMMEND CLEAR LIQUIDS AT THIS TIME DUE TO RECENT EXTUBATION 09/17, WITH PLACEMENT ON 09/12/21. DENIES CARDIAC PAIN, JUST GENERALIZED RIB AND CHEST PAIN. LEVAQUIN STARTED TODAY FOR PNA. LAST CXR ON 09/18 PLEASE SEE REPORT. WILL CONTINUE TO MONITOR.
--- NOTE | 2021-09-18 21:46 | NUR ---
UPDATE PT HAD XRAY SHOWING PICC LINE THAT NEEDED WITHDRAWN 5CM AND PICC LINE WAS UNABLE TO FLUSH OR DRAW WITHOUT MANUAL PULLING BACK ON THE CATHETER. DR. MACEDO CONTACTED WHO SUGGESTED TO WITHDRAW LINE ONE CM INSTEAD OF 5CM DUE TO EXISTING 6CM ALREADY EXPOSED. CUSTOMER SERVICE CONSULTANT MARC Goodrich NOTIFIED and PERFORMED THE PROCEDURE.
--- NOTE | 2021-09-18 22:14 | NUR ---
CARE ASSUMPTION PT IS AXO BUT DOES NOT KNOW THE DATE. PT COMMUNICATING APPROPRIATELY. O2 SATS >90% ON 1L NC. VSS AND AFEBRILE. PT REPORTING SIGNIFICANT PAIN, TREATED PER EMAR W RELIEF. PT RESTING COMFORTABLY DENYING ANY FURTHER NEEDS AT THIS TIME.
[2021-09-19 03:33] LABS: Hematocrit 24.6 % (37.0-53.0); Mean Corpuscular HGB 32.7 pg (26.0-34.0); Mean Corpuscular HGB Conc 32.5 g/dL (31.5-36.5); Mean Corpuscular Volume 100 fL (80-100); Mean Platelet Volume 9.3 fL (9.1-12.4); NRBC ABSOLUTE 0.39 K/mm3 (0.00-0.02); NRBC Auto 2.3 /100 WBC (0.0-0.2); Platelet Count 275 K/mm3 (150-400); RDW Standard Deviation 51.1 fL (35.1-46.3); Red Blood Cell Count 2.45 M/mm3 (4.30-5.90); White Blood Cell Count 16.94 K/mm3 (4.00-11.30)
[2021-09-19 03:58] LABS: BAND PERCENT MAN 6 % (0-8); BASOPHILS PERCENT MAN 0 % (0-2); EOSINOPHILS ABSOLUTE MAN 0.16 K/mm3 (0.00-0.68); EOSINOPHILS PERCENT MAN 1 % (0-6); LYMPHOCYTES PERCENT MAN 13 % (21-46); MONOCYTES ABSOLUTE MAN 1.52 K/mm3 (0.16-1.47); MONOCYTES PERCENT MAN 9 % (4-13); MYELOCYTE ABSOLUTE MAN 0.33 K/mm3 (0.00-0.00); MYELOCYTE PERCENT MAN 2 % (0-0); SEG NEUTROPHILS PERCENT MAN 69 % (41-73); TOTAL CELLS COUNTED 100
[2021-09-19 03:59] LABS: Albumin, Blood 1.7 g/dL (3.4-5.0); Anion Gap 6 mmol/L (6-16); Blood Urea Nitrogen 16 mg/dL (8-24); Bun/Creatinine Ratio 21.3 (12.0-20.0); CO2, Blood 26 mmol/L (21-32); Chloride, Blood 109 mmol/L (98-108); Creatinine, Blood 0.75 mg/dL (0.60-1.20); Glomerular Filtration Rate >60 (60-); Glucose, Blood 121 mg/dL (70-99); Phosphorus, Blood 3.1 mg/dL (2.5-4.9); Potassium, Blood 3.7 mmol/L (3.5-5.5); Sodium, Blood 141 mmol/L (136-145)
--- NOTE | 2021-09-19 06:39 | NUR ---
CLIENT SERVICES COORDINATOR SUMMARY PT IS AXO X4 AND COMMUNICATES APPROPRIATELY. PT HAD NO MAJOR CHANGES THIS SHIFT HE RESTED COMFORTABLY IN BED. PT REPORTING SEVERE PAIN IN RIBS AND L SHOULDER THIS SHIFT, MEDICATED PER EMAR W MINIMAL RELEIF. O2 SATS >92% ON 1-2L NC. PT HAS ACTUALLY HAD GOOD PO INTAKE THIS SHIFT HE REQUESTED ORANGE JUICE AND TOLERATED IT WELL. WILL REPORT TO ONCOMING RN.
--- NOTE | 2021-09-19 16:43 | NUR ---
Pt expressed he wants to go home and not persue care. Spoke with son. He lives in a trailer without running water. but he is safe there. Discussed his prognosis and needs. Advised if he wants to go home he should have hospice care. Pt son had me discuss hospice with the patient and advised them to speak with his children and sisters about a plan.
--- NOTE | 2021-09-19 19:18 | NUR ---
END OF SHIFT: PATIENT HAD INCREASED PAIN MANAGEMENT THROUGH THE DAY MAY NEED TO INCREASE TO TID ON OXYCONTIN FOR BEST RESULTS DUE TO NEEDING DILAUDED Q6. ESPECIALLY WITH MOVEMENT. PATIENT WAS ABLE TO AMBULATE WITH GAIT BELT AND FWW TO THE CHAIR, AND BACK TO BED. PATIENT IS STIL WEAK MODERATE ASSIST. PATIENT WAS MOVED Q2 IN NOT LESS, BY RN, PCT, OT, AND PT. PATIENT HAS BEEN COOPERATIVE, STILL USING 1-3L VIA NC. FAMILY WAS AT BEDSIDE FOR A COUPLE HOURS. PATIENT DENIES CHEST PAIN, MINUS ACID REFLUX AND RIB FX PAIN. BM IN BED PAINSHOULD BE ABLE TO BSC WITH 1 PERSON ASSISTANCE. PATIENT STILL COUGHING UP BLOOD THICK TENACIOUS SPUTUM. PATIENT HAS BEEN RUNNING LOW GRADE FEVER TYLENOL GIVEN MULTIPLE TIMES THROUGHOUT THE DAY. PATIENT HAS NO QUESTIONS COMMENTS OR CONCERNS AT THIS TIME WILL CONTINUE TO MONITOR.
--- NOTE | 2021-09-19 21:36 | NUR ---
CARE ASSUMPTION PT IS AXO X4 AND COMMUNICATING APPROPRIATELY. PT REPORTING PAIN IN HIS RBS, MEDICATED PER EMAR. PT HAS RISING TEMP CURRENTLY AT 100.2 SO TYLENOL GIVEN WHICH BROUGHT TEMP DOWN TO 99.9, WCTM. O2 SATS >90% ON 1L NC. PT DENYING ANY FURTHER NEEDS AT THIS TIME.
--- NOTE | 2021-09-20 04:52 | NUR ---
WEALTH MANAGEMENT MANAGER SUMRY PT IS AXO X4 AND COMMUNICATING APPROPRIATELY. PT CONTINUES TO HAVE SEVERE PAIN BUT APPEARS BETTER MANAGED THIS SHIFT COMPARED TO PREVIOUS NIGHT. VSS WNL AND STABLE W O2 SATS >92% ON 2L NC. PT RUNNING LOW GRADE TEMP BETWEEN 99.3-100.3 THIS SHIFT, MEDICATED PER EMAR. PT REFUSING REPOSITIONING FOR MAJORITY OF THE NIGHT. WILL REPORT TO ONCOMING RN.
--- NOTE | 2021-09-20 10:55 | NUR ---
Spiritual Care Visit Pt. is sitting up in a chair. Pt. welcomes my visit. I had seen pt. previously when he was unresponsive. Pt. displayed evidence of gratitude for his recovery. Establish rapport. Pt. is mildly unsettled about the presence of cancer. Listened empathetically and Pastoral Care is given. Prayed with pt. Pt. verbalized hope and purpose in his life, as well as gratitude for spiritual care during his hospitialization. Pt. verbalizes anticipation of being discharged today or tomorrow.
[2021-09-20] MEDS ORDERED: CEFP200 PO (14:04)
[2021-09-20] MEDS ORDERED: HYDMOR2 PO (14:04)
[2021-09-20] MEDS ORDERED: OXYC10ER PO (14:05)
--- NOTE | 2021-09-20 15:04 | NUR ---
Patient discharged to home with discharge orders, home health hospice to see patient tomorrow for follow up and admission, patient to continue antibiotic po at home and pain medicine, prescriptions sent to [facility], family to pickling grader prescription and meet patient at home to set up for home O2. Patient on continuous O2 via nasal cannula. Discharge medication and instructions disclosed, PICC lined pulled and catheter D/C by Luna RN. Patient was able to void with no issues prior to discharge, pain meds given prior to leaving. Patient able to transfer by stand by assist to wheelchair with no issues, all belongings sent with patient. [facility] transported patient.
== END 2021-09-20 14:59 | disposition hospice, home (50) | DRG 246 ==
LOC: ER 11:31 → ICUE 14:52 → PCU 09-18 16:49
PROVIDERS: Internal Medicine; Internal Medicine Critical Care Medicine; Nurse Practitioner Acute Care; Student in an Organized Health Care Education/Training Program; ADMIT Internal Medicine
PROC: 4A023N7 Measurement of Cardiac Sampling and Pressure, Left Heart, Percutaneous Approach (ICD-10-PCS; principal; 2021-09-13)
PROC: B2111ZZ Fluoroscopy of Multiple Coronary Arteries using Low Osmolar Contrast (ICD-10-PCS; 2021-09-13)
PROC: 5A12012 Performance of Cardiac Output, Single, Manual (ICD-10-PCS; 2021-09-13)
PROC: 027034Z Dilation of Coronary Artery, One Artery with Drug-eluting Intraluminal Device, Percutaneous Approach (ICD-10-PCS; 2021-09-13)
PROC: 04HY32Z Insertion of Monitoring Device into Lower Artery, Percutaneous Approach (ICD-10-PCS; 2021-09-13)
PROC: 4A133B1 Monitoring of Arterial Pressure, Peripheral, Percutaneous Approach (ICD-10-PCS; 2021-09-13)
PROC: 4A133J1 Monitoring of Arterial Pulse, Peripheral, Percutaneous Approach (ICD-10-PCS; 2021-09-13)
PROC: 02H633Z Insertion of Infusion Device into Right Atrium, Percutaneous Approach (ICD-10-PCS; 2021-09-13)
PROC: 3E033XZ Introduction of Vasopressor into Peripheral Vein, Percutaneous Approach (ICD-10-PCS; 2021-09-13)
PROC: 5A1955Z Respiratory Ventilation, Greater than 96 Consecutive Hours (ICD-10-PCS; 2021-09-13)
DX: I21.19 ST elevation (STEMI) myocardial infarction involving other coronary artery of inferior wall (principal); J18.9 Pneumonia, unspecified organism; I46.8 Cardiac arrest due to other underlying condition; I49.01 Ventricular fibrillation; Z66 Do not resuscitate; J96.90 Respiratory failure, unspecified, unspecified whether with hypoxia or hypercapnia; J44.0 Chronic obstructive pulmonary disease with (acute) lower respiratory infection; J95.811 Postprocedural pneumothorax; E87.4 Mixed disorder of acid-base balance; C34.90 Malignant neoplasm of unspecified part of unspecified bronchus or lung; R64 Cachexia; Z68.1 Body mass index [BMI] 19.9 or less, adult; Z20.822 Contact with and (suspected) exposure to COVID-19; E83.51 Hypocalcemia; R74.01 Elevation of levels of liver transaminase levels; I25.10 Atherosclerotic heart disease of native coronary artery without angina pectoris; E83.52 Hypercalcemia; D69.6 Thrombocytopenia, unspecified; G89.29 Other chronic pain; M54.9 Dorsalgia, unspecified; F32.A Depression, unspecified; E87.5 Hyperkalemia; F17.210 Nicotine dependence, cigarettes, uncomplicated; Z98.890 Other specified postprocedural states; Y84.8 Other medical procedures as the cause of abnormal reaction of the patient, or of later complication, without mention of misadventure at the time of the procedure
CPT/HCPCS: 0241U; 31500; 32408; 36415; 36556; 36569; 36600; 36620; 37195; 70450; 71045; 71260; 77012; 80047; 80048; 80053; 80069; 81001; 82248; 82550; 82553; 82607; 82728; 82746; 82803; 82947; 83540; 83550; 83605; 83735; 83880; 84100; 84484; 85014; 85018; 85025; 85347; 85610; 85730; 86850; 86900; 86901; 87070; 87077; 87147; 87185; 87186; 87205; 88305; 88342; 88360; 88374; 88381; 92950; 93005; 93010; 93306; 93458; 94002; 94003; 94640; 96374; 96375; 97110; 97163; 97166; 97530; 99291; 99292; A9270; C1725; C1751; C1769; C1874; C1887; C1894; C9113; C9600; J0171; J0282; J0461; J0696; J1170; J1644; J1815; J1940; J1956; J2250; J2405; J2543; J2700; J2704; J2997; J3010; J3370; J3411; J3480; J7030; J7050; J7060; Q9967